=== PATIENT | female | born 1960 | race African-American/Black ===

== ENCOUNTER 2017-08-31 07:11 | Inpatient (IN) | payer OTHER, MEDICAID ==
[2017-08-31] VITALS (63 sets, daily range): BP systolic 36–179; BP diastolic 23–105
[~2017-08-31] VITALS: Ht 167.6 cm; Wt 62.1 kg
[~2017-08-31 07:11] MED LIST: diazepam; morphine; tramadol; vicodin
[2017-08-31] MEDS ORDERED: NALOXONE HCL 1 MG/ML 2ML VIAL ONE (07:21)
[2017-08-31] MEDS ORDERED: SODIUM CHLORIDE 0.9% 1,000 ML IV ONE (07:21)
[2017-08-31] MEDS ORDERED: SODIUM CHLORIDE 0.9% 1000ML BAG (SEPSIS BOLUS) IV ONE (07:30)
[2017-08-31] MEDS ORDERED: PROPOFOL 10MG/ML 100ML 100 ML IV SCH (07:30)
[2017-08-31 07:55] LABS: BASOPHILS % 0.2 % (0.0-2.0); CHLORIDE 105 mEq/L (98-107); HEMATOCRIT. 40.5 % (36.0-48.0); HEMOGLOBIN. 13.8 g/dL (12.0-16.0); LYMPHOCYTES % 8.5 % (20.0-50.0); MEAN CORPUSCULAR HEMOGLOBIN 33.4 pg (28.0-32.0); MEAN CORPUSCULAR VOLUME 97.8 fL (81.0-99.0); NEUTROPHILS % 86.3 % (40.0-76.0); PLATELET 366 x1000/uL (130-400); RED BLOOD CELL COUNT 4.14 mill/uL (4.2-5.4); RED CELL DISTRIBUTION WIDTH 14.7 % (11.6-14.6)
[2017-08-31 08:00] LABS: INR 1.2; PROTHROMBIN TIME 12.2 sec (9.4-11.6)
[2017-08-31 08:04] LABS: CARBON DIOXIDE 25 mEq/L (21-32); ETHANOL BLOOD 10 mg/dL
[2017-08-31] MEDS ORDERED: NICARDIPINE 40MG/200ML PREMIX 200 ML IV SCH (08:30)
[2017-08-31] MEDS ORDERED: DEXAMETHASONE 4MG/ML 1ML VIAL IV ONE (08:30)
[2017-08-31] MEDS ORDERED: LEVETIRACETAM 500MG PREMIX 100 ML IV ONE (08:30)
[2017-08-31 08:54] LABS: CLARITY URINE CLEAR (CLEAR); COLOR URINE YELLOW (YELLOW); GLUCOSE URINE NEGATIVE (NEGATIVE); KETONES URINE NEGATIVE (NEGATIVE); LEUKOCYTE ESTERASE URINE NEGATIVE (NEGATIVE); NITRITE URINE NEGATIVE (NEGATIVE); OCCULT BLOOD URINE TRACE (NEGATIVE); PROTEIN URINE NEGATIVE (NEGATIVE); SPECIFIC GRAVITY URINE 1.013 (1.005-1.030)
[2017-08-31 09:03] LABS: BG BASE EXCESS -10.2 mmol/L (-2.0-2.0); BG CARBOXYHEMOGLOBIN 0.2 % (0.5-1.5); BG DEOXYHEMOGLOBIN 16.9 % (0.0-5.0); BG FRACTION INSPIRED OXYGEN 100; BG HCO3 ACT 14.2 mmol/L (22.0-26.0); BG METHEMOGLOBIN 0.6 % (0.0-1.5); BG OXYHEMOGLOBIN 82.3 % (94.0-97.0); BG PCO2 25.9 mmHg (35.0-45.0); BG PH 7.356 (7.350-7.450); BG PO2 53.7 mmHg (75.0-100.0); BG SAMPLE SITE RIGHT BRACHIAL; BG TIDAL VOLUME(mL) 500 mL; BG TOTAL HEMOGLOBIN 7.8 g/dL (12.0-18.0); BG VENT MODE VENT - A/C; BG VENT RATE 18 set
[2017-08-31] MEDS ORDERED: LEVETIRACETAM 500 MG in SODIUM CHLORIDE 0.9% 100 ML IV SCH (10:45)
[2017-08-31] MEDS ORDERED: NICARDIPINE 100 MG in SODIUM CHLORIDE 0.9% 60 ML IV PRN (11:00)
[2017-08-31] MEDS: DEXT 5%/LACTATED RINGERS 1,000 ML IV SCH (11:14)
[2017-08-31] MEDS ORDERED: NAPR-681 PO (11:31)
[2017-08-31] MEDS ORDERED: DIPH25CA83 PO (11:31)
[2017-08-31] MEDS ORDERED: ONDA8TAB6 PO (11:31)
[2017-08-31] MEDS ORDERED: MORP60TA6 PO (11:31)
[2017-08-31] MEDS ORDERED: CLON0.5T4 PO (11:31)
[2017-08-31] MEDS ORDERED: FERR325T6 PO (11:31)
[2017-08-31] MEDS ORDERED: TOPI25CA2 PO (11:31)
[2017-08-31] MEDS ORDERED: OMEP40CA34 PO (11:31)
[2017-08-31] MEDS ORDERED: PARO-41 PO (11:31)
[2017-08-31] MEDS ORDERED: VITA100014 PO (11:31)
[2017-08-31] MEDS ORDERED: IBUP-2030 PO (11:31)
[2017-08-31] MEDS ORDERED: CLON0.5T23 PO (11:31)
[2017-08-31] MEDS ORDERED: ONDA8TAB6 SL (11:31)
[2017-08-31] MEDS ORDERED: CARI350T PO (11:31)
[2017-08-31] MEDS ORDERED: OXYC-104 PO (11:31)
[2017-08-31] MEDS: PIPERACILLIN/TAZ 3.375G PREMIX 50 ML IV SCH ×2 (12:51→18:51)
[2017-08-31] MEDS: DEXAMETHASONE 4MG/ML 1ML VIAL IV SCH ×3 (12:51→23:00)
[2017-08-31] MEDS ORDERED: DIGOXIN 500MCG/2ML AMP IV NR (12:51)
[2017-08-31] MEDS: IPRATROPIUM/ALBUTEROL 0.5-3(2.5)MG/3ML NEB HHN SCH ×2 (14:03→20:31)
[2017-08-31] MEDS ORDERED: PROPOFOL 10MG/ML 100ML 100 ML IV PRN (14:15)
[2017-08-31] MEDS ORDERED: ACETAMINOPHEN 650MG SUPP PR PRN (14:30)
[2017-08-31] MEDS ORDERED: SODIUM CHLORIDE 0.9% 1,000 ML IV SCH ×2 (15:30→16:30)
[2017-08-31] MEDS: PHENYLEPHRINE 40 MG in DEXT 5% WATER 246 ML IV PRN ×2 (15:50→20:02)
[2017-08-31] MEDS: ACETAMINOPHEN 650MG/20.3ML UDC NG PRN (16:00)
[2017-08-31 20:22] LABS: *AMPHETAMINES SCREEN URINE NEGATIVE (NEGATIVE); *BARBITURATES SCREEN URINE NEGATIVE (NEGATIVE); *BENZODIAZEPINES SCREEN URINE NEGATIVE (NEGATIVE); *COCAINE SCREEN URINE NEGATIVE (NEGATIVE); CANNABINOID URINE SCREEN NEGATIVE (NEGATIVE); METHADONE URINE SCREEN NEGATIVE (NEGATIVE); OPIATES URINE SCREEN PRESUMTIVE POSITIVE (NEGATIVE); PHENCYCLIDINE URINE SCREEN NEGATIVE (NEGATIVE)
[2017-08-31] MEDS: FAMOTIDINE 20MG/2ML VIAL IV SCH (21:00)
[2017-08-31] MEDS: LEVETIRACETAM 500MG PREMIX 100 ML IV SCH (21:01)
[2017-08-31] MEDS: PHENYLEPHRINE 80 MG in DEXT 5% WATER 492 ML IV PRN (22:56)
[2017-09-01] VITALS (90 sets, daily range): BP systolic 65–169; BP diastolic 44–113
[2017-09-01] MEDS: IPRATROPIUM/ALBUTEROL 0.5-3(2.5)MG/3ML NEB HHN SCH ×4 (01:42→20:15)
[2017-09-01] MEDS: PIPERACILLIN/TAZ 3.375G PREMIX 50 ML IV SCH ×4 (02:52→18:41)
[2017-09-01] MEDS: DEXT 5%/LACTATED RINGERS 1,000 ML IV SCH ×2 (03:03→20:05)
[2017-09-01] MEDS: ACETAMINOPHEN 650MG/20.3ML UDC NG PRN ×2 (04:28→09:52)
[2017-09-01 05:22] LABS: BASOPHILS % 0.1 % (0.0-2.0); HEMATOCRIT. 42.7 % (36.0-48.0); HEMOGLOBIN. 14.1 g/dL (12.0-16.0); LYMPHOCYTES % 8.3 % (20.0-50.0); MEAN CORPUSCULAR HEMOGLOBIN 33.2 pg (28.0-32.0); MEAN CORPUSCULAR VOLUME 100.4 fL (81.0-99.0); MEAN PLATELET VOLUME 7.9 fl (7.4-10.4); MONOCYTES % 10.9 % (2.0-8.0); NEUTROPHILS % 80.7 % (40.0-76.0); PLATELET 116 x1000/uL (130-400); RED BLOOD CELL COUNT 4.25 mill/uL (4.2-5.4); RED CELL DISTRIBUTION WIDTH 15.4 % (11.6-14.6)
[2017-09-01] MEDS: DEXAMETHASONE 4MG/ML 1ML VIAL IV SCH ×3 (06:03→18:41)
[2017-09-01] MEDS: PHENYLEPHRINE 80 MG in DEXT 5% WATER 492 ML IV PRN ×3 (06:25→21:57)
[2017-09-01] MEDS: LEVETIRACETAM 500MG PREMIX 100 ML IV SCH ×2 (09:47→21:26)
[2017-09-01] MEDS: FAMOTIDINE 20MG/2ML VIAL IV SCH ×2 (09:53→21:26)
[2017-09-01 12:58] LABS: BG BASE EXCESS -13.8 mmol/L (-2.0-2.0); BG CARBOXYHEMOGLOBIN 0.1 % (0.5-1.5); BG DEOXYHEMOGLOBIN 1.8 % (0.0-5.0); BG FRACTION INSPIRED OXYGEN 100; BG HCO3 ACT 12.7 mmol/L (22.0-26.0); BG METHEMOGLOBIN 0.2 % (0.0-1.5); BG OXYGEN SATURATION 98.2 % (92.0-98.5); BG OXYHEMOGLOBIN 97.9 % (94.0-97.0); BG PCO2 31.8 mmHg (35.0-45.0); BG PH 7.219 (7.350-7.450); BG PO2 182.5 mmHg (75.0-100.0); BG SAMPLE SITE RIGHT RADIAL; BG TIDAL VOLUME(mL) 500 mL; BG TOTAL HEMOGLOBIN 14.1 g/dL (12.0-18.0); BG VENT MODE VENT - A/C; BG VENT RATE 18 set
[2017-09-01] MEDS ORDERED: KCL 20MEQ/100ML PREMIX 100 ML IV NR (13:00)
[2017-09-02] VITALS (62 sets, daily range): BP systolic 82–160; BP diastolic 41–108
[2017-09-02] MEDS: DEXAMETHASONE 4MG/ML 1ML VIAL IV SCH ×3 (00:52→11:39)
[2017-09-02] MEDS: PIPERACILLIN/TAZ 3.375G PREMIX 50 ML IV SCH ×3 (00:52→13:14)
[2017-09-02] MEDS: IPRATROPIUM/ALBUTEROL 0.5-3(2.5)MG/3ML NEB HHN SCH ×3 (01:47→13:08)
[2017-09-02] MEDS: FAMOTIDINE 20MG/2ML VIAL IV SCH (08:06)
[2017-09-02] MEDS: LEVETIRACETAM 500MG PREMIX 100 ML IV SCH (08:06)
[2017-09-02] MEDS: PHENYLEPHRINE 80 MG in DEXT 5% WATER 492 ML IV PRN (10:28)
[2017-09-02] MEDS: DEXT 5%/LACTATED RINGERS 1,000 ML IV SCH (13:14)
[2017-09-02] MEDS ORDERED: MORPHINE SULFATE 100 MG in DEXT 5% WATER 90 ML IV PRN (15:15)
[2017-09-02] MEDS ORDERED: MORPHINE SULFATE 250 MG in DEXT 5% WATER 240 ML IV PRN (15:30)
== END 2017-09-02 16:11 | disposition expired | DRG 208 ==
LOC: ER 07:13 → EDBEDREQ 07:37 → MICUNO 08:05 → EDBEDREQTM 08:08 → EDBEDREQ 08:08 → ENRESERV 08:32
PROVIDERS: ADMIT Internal Medicine; ATTEND Internal Medicine
PROC: 5A1945Z Respiratory Ventilation, 24-96 Consecutive Hours (ICD-10-PCS; principal; 2017-08-31)
PROC: 0BH17EZ Insertion of Endotracheal Airway into Trachea, Via Natural or Artificial Opening (ICD-10-PCS; 2017-08-31)
DX: J96.90 Respiratory failure, unspecified, unspecified whether with hypoxia or hypercapnia (principal); R64 Cachexia; I95.9 Hypotension, unspecified; I60.9 Nontraumatic subarachnoid hemorrhage, unspecified; I61.3 Nontraumatic intracerebral hemorrhage in brain stem; I62.01 Nontraumatic acute subdural hemorrhage; M19.90 Unspecified osteoarthritis, unspecified site; R40.2430 Glasgow coma scale score 3-8, unspecified time; Z79.899 Other long term (current) drug therapy; Z68.22 Body mass index [BMI] 22.0-22.9, adult
CPT/HCPCS: 31500; 36415; 36600; 70450; 71010; 78615; 80048; 80053; 80305; 80307; 80329; 81001; 82375; 82805; 83605; 84478; 85025; 85610; 87040; 87086; 87493; 93005; 94002; 94003; 94640; 96374; 96375; 99291; A6261; A9512; G0482; J1100; J1160; J1953; J2310; J2370; J2543; J2704; J3480; J3490; J7030; J7040; J7060; J7121; J7620